=== PATIENT | male | born 1975 | race Caucasian/White ===

== ENCOUNTER 2021-03-17 06:02 | Day surgery (SDC) | payer OTHER ==
[~2021-03-17 06:02] MED LIST: ALLEGRA ALLERGY60 MG PO; CLARITIN10 M1 PO; PROTONIX40 MG PO; PROVENTIL S1 ML/5 MG IH; THEOCHRON200 MG PO; [UNRECOGNIZED DRUG - OTHER] PO
== END 2021-03-17 14:20 | disposition home or self-care (01) ==
LOC: CIR.AMB 06:02
PROVIDERS: ATTEND Orthopaedic Surgery Hand Surgery
DX: M72.0 Palmar fascial fibromatosis [Dupuytren] (principal); Z20.822 Contact with and (suspected) exposure to COVID-19

== ENCOUNTER 2024-04-24 06:30 | Day surgery (SDC) | payer OTHER ==
[~2024-04-24 06:30] MED LIST changes: +LOSARTAN POTASS25 MG; +TOPROL XL25 M1
[2024-04-24] MEDS ORDERED: BUPIVACAINE HCL 30 ML VIAL IJ ONE (14:15)
[2024-04-24] MEDS ORDERED: CEFAZOLIN SODIUM 1,000 MG VIAL IV ONE (14:15)
[2024-04-24] MEDS ORDERED: ISOPROPYL ALCOHOL 30 ML OUNCE TOP ONE (14:15)
[2024-04-24] MEDS ORDERED: MORPHINE SULFATE 4 MG/ML VIAL IV ONE (16:00)
== END 2024-04-24 17:40 | disposition home or self-care (01) ==
LOC: CIR.AMB 06:30
PROVIDERS: ATTEND Orthopaedic Surgery Hand Surgery
DX: M72.0 Palmar fascial fibromatosis [Dupuytren] (principal); Z88.2 Allergy status to sulfonamides; J45.909 Unspecified asthma, uncomplicated; R73.03 Prediabetes; F41.9 Anxiety disorder, unspecified; I10 Essential (primary) hypertension; J32.9 Chronic sinusitis, unspecified